=== PATIENT | male | born 1990 | race African-American/Black ===

== ENCOUNTER 2017-06-12 11:07 | Emergency (ER) | payer OTHER ==
[2017-06-12] MEDS ORDERED: Bacitracin Oint 1 GM U/D Packet TOP ONE (11:27)
[2017-06-12] MEDS ORDERED: Diphtheria,Pertussis(Acell),Tetanus Vaccine 0.5 ML Syringe IM ONE (11:35)
--- NOTE | 2017-06-12 11:35 | EDM.PDOC ---
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 Past medical history: As per history of present illness and as reviewed below otherwise noncontributory. Surgical history: As per history of present illness and as reviewed below otherwise noncontributory. Social history: No reported history of drug or alcohol abuse. Family history: As per history of present illness and as reviewed below otherwise noncontributory. Physical exam: Oriented male answering questions appropriately in full sentences without any shortness of breath HEENT: Atraumatic, normocehpalic, pupils reactive, negative for conjunctival pallor or scleral icterus, mucous membranes moist, throat clear, neck supple, nontender, trachea midline. Lungs: Clear to auscultation, breath sounds equal bilaterally, chest non tender. Heart: S1S2, regular, negative for clicks, rubs, or JVD. Abdomen: Soft, nondistended, nontender. Negative for masses or hepatossplenmegaly. Negative for costovertebral tenderness. Pelvis: Stable nontender. Genitourinary: Deferred. Rectal: Deferred Extremities: traumatic injury to right middle finger, full range of motion is noted to his finger, nail is intact. negative for cords or calf pain. Neurovascular unremarkable. Neuro: Awake, alert, oriented. Cranial nerves II through XII unremarkable. Cerebellum unremarkable. Motor and sensory unremarkable throughout. Exam nonfocal. Picture of injury has been sent to Dr. Downing and she said she will come and see this person. Reevaluation and there was a small piece of tissue noted in the glove that he had been wearing that is in place in a bag and on ice. [id number] Dr. Downing is here has evaluated patient follow-up in [address] Downing Diagnostics: [] Therapeutics: []adacel Impression: []Avulsion of fingertip Plan: []Discharged home Tylenol 3 for pain medication . Clean and dry xeroform dressing Definitive disposition and diagnosis as appropriate pending reevaluation and review of above. Location: Reports: Upper Extremity, Right R 3rd Finger Pain Score (Numeric/FACES): 7 - Related Data Allergies Allergy/AdvReac Type Severity Reaction Status Date / Time No Known Allergies Allergy Verified 06/12/17 11:10 Home Meds: Home Meds . [No Known Home Meds] 06/12/17 [History] Past Medical History - Past Health History Medical/Surgical History: Denies Medical/Surgical History Social & Family History - Family History Family Medical History: Noncontributory - Tobacco Use Smoking Status *Q: Never Smoker Second Hand Smoke Exposure: No - Caffeine Use Caffeine Use: Reports: Tea - Recreational Drug Use Recreational Drug Use: No ED ROS GENERAL - Review of Systems Review Of Systems: ROS reveals no pertinent complaints other than HPI. ED EXAM, SKIN/RASH Exam: See Below (see dictation) Course - Vital Signs Last Recorded V/S: Last Vital Signs Temp 36.4 C 06/12/17 11:08 Pulse 78 06/12/17 11:08 Resp 18 06/12/17 11:08 BP 150/85 H 06/12/17 11:08 Pulse Ox 97 06/12/17 11:08 - Orders/Labs/Meds Orders: Active Orders 24 hr Category Date Time Status Vaccines to be Administered [RC] PER UNIT ROUTINE Care 06/12/17 11:35 Active Meds: Medications Discontinued Medications Generic Name Dose Route Start Last Admin Trade Name Freq PRN Reason Stop Dose Admin Bacitracin 1 dose 06/12/17 11:27 Bacitracin Oint 1 Gm TOP 06/12/17 11:28 ONETIME ONE Diphtheria/Tetanus/Acell Pertussis 0.5 ml 06/12/17 11:35 Adacel IM 06/12/17 11:36 .ONCE ONE Departure - Departure Time of Disposition: 11:44 Disposition: Home, Self-Care 01 Condition: Good Clinical Impression: Fingertip avulsion Qualifiers: Encounter type: initial encounter Qualified Code(s): S61.209A - Unspecified open wound of unspecified finger without damage to nail, initial encounter - Discharge Information Instructions: Pain Medicine Instructions, Xuqu-sa-Acty, Traumatic Finger Amputation Forms: ED Department Discharge Additional Instructions: The following information is given to patients seen in the emergency department who are being discharged to home. This information is to outline your options for follow-up care. We provide all patients seen in our emergency department with a follow-up referral. The need for follow-up, as well as the timing and circumstances, are variable depending upon the specifics of your emergency department visit. If you don't have a primary care physician on staff, we will provide you with a referral. We always advise you to contact your personal physician following an emergency department visit to inform them of the circumstance of the visit and for follow-up with them and/or the need for any referrals to a consulting specialist. The emergency department will also refer you to a specialist when appropriate. This referral assures that you have the opportunity for followup care with a specialist. All of these measure are taken in an effort to provide you with optimal care, which includes your followup. Under all circumstances we always encourage you to contact your private physician who remains a resource for coordinating your care. When calling for followup care, please make the office aware that this follow-up is from your recent emergency room visit. If for any reason you are refused follow-up, please contact the [facility] emergency department at and asked to speak to the emergency department charge nurse. You have taken the tip of her finger off Keep area clean, and bandage daily You were given a tetanus vaccine Follow up with Dr. Lesa Downing in 2 weeks [facility] [address], [address] [place] [address] Prescription has been written for Tylenol No. 3 one or 2 tabs 3 times a day when necessary pain #21 with no refill Return to emergency room as discussed - My Orders Last 24 Hours: My Active Orders 06/12/17 11:35 Vaccines to be Administered [RC] PER UNIT ROUTINE - Assessment/Plan Last 24 Hours: My Active Orders 06/12/17 11:35 Vaccines to be Administered [RC] PER UNIT ROUTINE
--- NOTE | 2017-06-13 11:28 | PCM.CONS ---
H&P History of Present Illness - General Date of Service: 06/13/17 Admit Problem/Dx: very distal fingertip skin amputation. Source of Information: Patient, Provider, RN History Limitations: Reports: No Limitations - History of Present Illness Initial Comments - Free Text/Narative: RIght middle finger was in glove while working and it got pinched. Glove removed and the tip of the finger was with it. No exposed bone, but missing soft tissues. No other crush injury and nail plate intact. Discussed options with him and though he has the small piece of skin, sensation is much better with reepithelialization rather than grafting like that. Also the removed skin is quite dirty. Risk sand benefits of dressing changes discussed. This is my recommendation for him. All questions answered. Onset of Symptoms: Reports: Today, Sudden Duration of Symptoms: Reports: Hour(s): Location: Reports: Upper Extremity, Right Quality: Reports: Pressure, Throbbing Improves with: Reports: Immobilization Worsens with: Reports: Movement Associated Symptoms: Reports: No Other Symptoms R 3rd Finger Pain Score (Numeric/FACES): 7 - Related Data Allergies/Adverse Reactions: Allergies Allergy/AdvReac Type Severity Reaction Status Date / Time No Known Allergies Allergy Verified 06/12/17 11:10 Home Medications: Home Meds . [No Known Home Meds] 06/12/17 [History] Past Medical History - Past Health History Medical/Surgical History: Denies Medical/Surgical History Social & Family History - Family History Family Medical History: Noncontributory - Tobacco Use Smoking Status *Q: Never Smoker Second Hand Smoke Exposure: No - Caffeine Use Caffeine Use: Reports: Tea - Recreational Drug Use Recreational Drug Use: No H&P Review of Systems - Review of Systems: Review Of Systems: See Below General: Reports: No Symptoms HEENT: Reports: No Symptoms Pulmonary: Reports: No Symptoms Skin: Reports: Wound Neurological: Reports: No Symptoms Exam - Exam Exam: See Below - Vital Signs Vital Signs: Last Vital Signs Temp 97.6 F 06/12/17 11:08 Pulse 78 06/12/17 11:08 Resp 18 06/12/17 11:08 BP 150/85 H 06/12/17 11:08 Pulse Ox 97 06/12/17 11:08 Weight: 227 lb 8.273 oz - Exam General: Alert, Oriented, Cooperative HEENT: EOMI Lungs: Normal Respiratory Effort Extremities: Normal Range of Motion, Other (right middle fingertip very sital soft tissue amputation wihtout underlying exposed bone appreciated. Minor bleeding. Soaking currently. ) Skin: Warm, Dry, Wound (as above under extremity exam. ) Neuro Extensive - Mental Status: Alert, Oriented x3, Normal Mood/Affect, Normal Cognition Psychiatric: Alert, Normal Affect, Normal Mood Consult PN Assessment/Plan (1) Fingertip avulsion SNOMED Code(s): 467728811 Code(s): S61.209A - UNSP OPEN WOUND OF UNSP FINGER W/O DAMAGE TO NAIL, INIT Priority: Medium Qualifiers: Encounter type: initial encounter Qualified Code(s): S61.209A - Unspecified open wound of unspecified finger without damage to nail, initial encounter Problem List Initiated/Reviewed/Updated: Yes Plan: plan dressing changes, pain control and would do antibiotics as well. Follow up with us in 2 weeks. Only restriction is keeping clean and dry during that time. All questions answered. Requesting Provider: Madhuri Groves Date Consult Requested: 06/12/17 Reason for Consult: fingertip amputation Patient History Reviewed: Yes Admission H&P Reviewed: Yes Notified Requestor: Yes Time Spent (in minutes): 20
--- NOTE | 2017-06-13 13:21 | CR ---
EXAM DATE: 06/12/17 PATIENT'S AGE: 27 Patient: MINERVA BRANDON Facility: [facility] Site . Site : 1990 Study: XRay-Extremity Right Finger [id number]/25/2018 12:57:25 PM Ordering Physician: Doctor Ling Final Report: HISTORY: Crush injury tip of middle finger. FINDINGS: Three views of the right middle finger demonstrate irregularity of the soft tissue of the distal finger. The distal tuft is intact. No fracture dislocation. No foreign body seen. IMPRESSION: Soft tissue injury to the distal middle finger without fracture. Dictated by Rosemary Coates MD @ 06/12/2017 1:21:41 PM Dictated by: Rosemary Coates MD @ 06/12/2017 13:21:53 Signed by: Rosemary Coates MD @06/12/2017 1:21:53 PM (Electronic Signature) Report Signed by Proxy. DIMA
== END 2017-06-12 12:23 | disposition home or self-care (01) ==
LOC: MW.ED 11:07
DX: S61.202A Unspecified open wound of right middle finger without damage to nail, initial encounter (principal); Z23 Encounter for immunization; X58.XXXA Exposure to other specified factors, initial encounter; Y99.0 Civilian activity done for income or pay
CPT/HCPCS: 73140-26-F7; 73140-F7; 90471; 90715; 99283-25